=== PATIENT | female | born 1975 | race Caucasian/White ===

== ENCOUNTER → 2017-10-13 | Outpatient (REF) | payer MEDICARE ==
[2017-10-13 13:19] LABS: BASO % 0.7 % (0.0-1.0); EOS # 0.1 10^3/uL (0.0-0.50); EOS % 2.5 % (0.0-3.0); HEMOGLOBIN 12.2 g/dl (12.0-16.0); IMMATURE GRANULOCYTE % 0.2 % (0-0); LYMPH % 48.9 % (24.0-44.0); MEAN CORPUSCULAR VOLUME 97.1 fl (80.0-96.0); MONO # 0.2 10^3/uL (0.0-0.8); MONO % 4.5 % (0.0-5.0); NEUTROPHILS # 1.7 10^3/uL (1.8-7.7); NEUTROPHILS % 43.2 % (36.0-66.0); PLATELET COUNT, AUTOMATED 201 10^3/uL (150-450); RED BLOOD COUNT 3.81 10^6/uL (4.00-5.40); RED CELL DISTRIBUTION WIDTH 12.4 % (11.5-14.5)
[2017-10-13 13:32] LABS: INR 1.04; PROTHROMBIN TIME 13.7 SECONDS (12.4-14.5)
[2017-10-13 13:33] LABS: PARTIAL THROMBOPLASTIN TIME 32.1 SECONDS (26.8-37.9)
[2017-10-13 13:43] LABS: COLLAGEN EPINEPHRINE 119 SECONDS (74-162)
[2017-10-13 14:31] LABS: ALBUMIN 4.2 GM/DL (3.2-5.2); ALKALINE PHOSPHATASE 51 U/L (45-117); ALT/SGPT 23 U/L (12-78); ANION GAP 5 MEQ/L (8-16); AST/SGOT 17 U/L (7-37); BILIRUBIN,TOTAL 0.3 MG/DL (0.2-1.0); BLOOD UREA NITROGEN 14 MG/DL (7-18); CARBON DIOXIDE LEVEL 32 MEQ/L (21-32); CHLORIDE LEVEL 110 MEQ/L (98-107); CREATININE FOR GFR 0.87 MG/DL (0.55-1.02); GLOMERULAR FILTRATION RATE > 60.0 (>58); GLUCOSE, FASTING 80 MG/DL (70-105); POTASSIUM SERUM 4.9 MEQ/L (3.5-5.1); SODIUM LEVEL 147 MEQ/L (136-145)
== END ==
LOC: M LABNEURO 13:08
DX: Z01.818 Encounter for other preprocedural examination (principal); Z79.01 Long term (current) use of anticoagulants
CPT/HCPCS: 80053

== ENCOUNTER 2017-11-08 08:18 | Day surgery (SDC) | payer MEDICARE ==
[~2017-11-08 08:18] MED LIST: LIDOCAINE 2% INJ 100 MG/5 ML SDV (FOR ANES.) As Ordered; MIDAZOLAM INJ 2 MG/2 ML VIAL (J2250) As Ordered; ONDANSETRON 4MG/2ML VIAL (J2405) As Ordered; PROPOFOL 200 MG/20 ML VIAL As Ordered; fentaNYL 100 MCG/2 ML INJECTION (J3010) As Ordered
[2017-11-08] MEDS ORDERED: CLINDAMYCIN 900 MG in APPROPRIATE DILUENT 1 EA IV (08:30)
[2017-11-08] MEDS ORDERED: LIDOCAINE 1% MDV 20ML VIAL SQ (08:30)
[2017-11-08] MEDS: LR 1,000 ML IV (08:36)
[2017-11-08] MEDS ORDERED: LIDOCAINE W/EPINEPHRINE 1% 20ML VIAL As Ordered (08:36)
[2017-11-08] MEDS ORDERED: methylPREDNISolone SUSP 40 MG/ML (DEPO-medrol) VIAL (J1030) As Ordered (08:37)
[2017-11-08] MEDS ORDERED: BACITRACIN PWD 50,000 UNITS VIAL As Ordered (08:37)
[2017-11-08] MEDS: LIDOCAINE W/EPINEPHRINE 1% 20ML VIAL As Ordered (09:23)
[2017-11-08] MEDS: BACITRACIN PWD 50,000 UNITS VIAL As Ordered (09:23)
[2017-11-08] MEDS: methylPREDNISolone SUSP 40 MG/ML (DEPO-medrol) VIAL (J1030) As Ordered (09:23)
[2017-11-08] MEDS ORDERED: MIDAZOLAM INJ 2 MG/2 ML VIAL (J2250) As Ordered (09:47)
[2017-11-08] MEDS ORDERED: PROPOFOL 200 MG/20 ML VIAL As Ordered (10:44)
[2017-11-08] MEDS ORDERED: PERCOCET 5MG/325MG TAB As Ordered (11:22)
[2017-11-08] MEDS ORDERED: ONDANSETRON 4MG/2ML VIAL (J2405) IV (11:30)
[2017-11-08] MEDS: PERCOCET 5MG/325MG TAB PO ×2 (11:30→12:05)
[2017-11-08] MEDS ORDERED: LR 1,000 ML IV (11:30)
[2017-11-08] MEDS ORDERED: METOCLOPRAMIDE INJ 10MG/2ML VIAL (J2765) IV (11:30)
[2017-11-08] MEDS ORDERED: fentaNYL 100 MCG/2 ML INJECTION (J3010) IV (11:30)
== END 2017-11-08 12:40 | disposition home or self-care (01) ==
LOC: M SDC 08:18
DX: M54.81 Occipital neuralgia (principal); G43.101 Migraine with aura, not intractable, with status migrainosus; M47.812 Spondylosis without myelopathy or radiculopathy, cervical region; I10 Essential (primary) hypertension; F41.9 Anxiety disorder, unspecified; M19.90 Unspecified osteoarthritis, unspecified site; J45.909 Unspecified asthma, uncomplicated; G89.29 Other chronic pain; M79.7 Fibromyalgia; F32.9 Major depressive disorder, single episode, unspecified; F43.10 Post-traumatic stress disorder, unspecified; R32 Unspecified urinary incontinence; R56.9 Unspecified convulsions; F42.9 Obsessive-compulsive disorder, unspecified; M47.817 Spondylosis without myelopathy or radiculopathy, lumbosacral region; M46.1 Sacroiliitis, not elsewhere classified; G57.50 Tarsal tunnel syndrome, unspecified lower limb; G56.20 Lesion of ulnar nerve, unspecified upper limb; T88.59XD Other complications of anesthesia, subsequent encounter; R55 Syncope and collapse; Z88.0 Allergy status to penicillin; Z88.8 Allergy status to other drugs, medicaments and biological substances; Z88.5 Allergy status to narcotic agent; Z91.013 Allergy to seafood; Z91.040 Latex allergy status; Z79.899 Other long term (current) drug therapy; Z98.84 Bariatric surgery status; Z98.51 Tubal ligation status
CPT/HCPCS: 64722

== ENCOUNTER → 2022-09-11 | Outpatient (CLI) | payer MEDICARE, OTHER ==
[~2022-09-11] MED LIST changes: +ACETAMINOPHEN 325 MG TAB As Ordered ONE; +ACETAMINOPHEN TAB 650MG DOSE (2X325MG) PO PRN; +ALBU2.5V10; +ASEN5TA PO; +BACL1TAB9; +CALC600C3; +CARB1TAB20; +CYAN500T14 PO; +D-3-50003 PO; +DRON2.5C11; +DULO1CAP5; +EPIP0.3I2 IM; +FENO145T7; +FOLI1TAB11 PO; +GABA800T4; +HYDR-3719; +HYDR25OIN; +IRON65TA PO; +ISOVUE-M 300 61% 15ML VIAL As Ordered ONE; +LAMO200T3; +LEUC10TA; +LIDOCAINE 1% MDV 20ML VIAL As Ordered ONE; -LIDOCAINE 2% INJ 100 MG/5 ML SDV (FOR ANES.) As Ordered; +METH2.5T48; -MIDAZOLAM INJ 2 MG/2 ML VIAL (J2250) As Ordered; +MIRE1IUD IU; +MISO200T56 PO; +MULT1TAB10 PO; +ONDA-83; -ONDANSETRON 4MG/2ML VIAL (J2405) As Ordered; +PRAZ5CAP; +PROP60CA; -PROPOFOL 200 MG/20 ML VIAL As Ordered; +ROPI2TAB3; +SFHGLU4TA PO; +SUMA50TA2; +VALA500T5; +VENTAER INH; +VITA80003 PO; +VOLT1GEL15 TD; +ZIPR60CA11; +ZOLP10TA2; -fentaNYL 100 MCG/2 ML INJECTION (J3010) As Ordered
[2022-09-11 12:05] VITALS: BP 145/77
== END ==
LOC: M IRPRO 08:57
PROVIDERS: ATTEND Physical Medicine & Rehabilitation
DX: M54.16 Radiculopathy, lumbar region (principal); M43.17 Spondylolisthesis, lumbosacral region; M51.26 Other intervertebral disc displacement, lumbar region; M51.27 Other intervertebral disc displacement, lumbosacral region
CPT/HCPCS: 62284; 72131; Q9967